=== PATIENT | female | born 2000 | race African-American/Black ===

== ENCOUNTER 2019-04-24 07:35 | Emergency (ER) | payer SELFPAY ==
[~2019-04-24] VITALS: Ht 172.7 cm; Wt 78.0 kg
[2019-04-24] MEDS ORDERED: LIDOCAINE 0.5%-EPI 1:200,000 50 ML VIAL ONE (07:46)
[2019-04-24] MEDS ORDERED: TDAP [DIPH/PERTUSSIS/TET] 0.5 ML VIAL IM ONE ×2 (07:47→08:00)
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
--- NOTE | 2019-04-24 07:55 | NUR ---
DR MUKHERJEE AT BEDSIDE FOR LAC REPAIR
[2019-04-24] MEDS ORDERED: LIDOCAINE 1%-EPI 1:100,000 20 ML VIAL TP ONE (08:00)
--- NOTE | 2019-04-24 08:51 | NUR ---
[employer] AT BEDSIDE SPEAKING W/ PATIENT. UNIT [id number] OFFICER RODNEY PETE#[id number].
[2019-04-24 09:29] VITALS: BP 115/69
--- NOTE | 2019-04-24 09:29 | NUR ---
Patient is ambulatory. Patient discharged to home in stable condition. Written and verbal after care instructions given. Patient verbalizes understanding of instruction.
== END 2019-04-24 09:32 | disposition home or self-care (01) ==
LOC: ER 07:41
DX: S01.81XA Laceration without foreign body of other part of head, initial encounter (principal); Z60.2 Problems related to living alone; V49.59XA Passenger injured in collision with other motor vehicles in traffic accident, initial encounter; Y93.89 Activity, other specified; Y92.413 State road as the place of occurrence of the external cause; Y99.8 Other external cause status
CPT/HCPCS: 12052; 70450; 90471; 90715; 99284; A6403 ×2; J3490

== ENCOUNTER 2021-06-20 01:48 | Emergency (ER) | payer OTHER ==
[~2021-06-20] VITALS: Ht 170.2 cm; Wt 63.5 kg
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
[2021-06-20] MEDS ORDERED: ONDANSETRON 4 MG TAB.RAPDIS ONE (03:09)
[2021-06-20] MEDS ORDERED: HYDROCODONE/APAP 10/325MG TABLET ONE (03:09)
--- NOTE | 2021-06-20 03:25 | NUR ---
[facility] #[phone], WAITING FOR AVAILABLE UNIT
[2021-06-20] MEDS ORDERED: ONDANSETRON 4 MG TAB.RAPDIS PO ONE (03:30)
[2021-06-20] MEDS ORDERED: HYDROCODONE/APAP 10/325MG TABLET PO ONE (03:30)
[2021-06-20] MEDS ORDERED: KETOROLAC TROMETHAMINE INJ 30 MG/ML VIAL ONE (03:45)
[2021-06-20] MEDS ORDERED: KETOROLAC TROMETHAMINE INJ 60 MG/2 ML VIAL IM ONE (04:00)
[2021-06-20] MEDS ORDERED: MORPHINE SULFATE INJ 2 MG/ML DISP.SYRIN IM ONE (04:00)
[2021-06-20] MEDS ORDERED: MORPHINE SULFATE INJ 2 MG/ML DISP.SYRIN ONE (04:00)
[2021-06-20] MEDS ORDERED: LIDO30CR TP (05:07)
--- NOTE | 2021-06-20 05:12 | NUR ---
Patient discharged to home in stable condition. Written and verbal after care instructions given. Patient verbalizes understanding of instruction.
[2021-06-20 05:13] VITALS: BP 130/77
== END 2021-06-20 05:53 | disposition home or self-care (01) ==
LOC: ER 01:53
DX: T14.8XXA Other injury of unspecified body region, initial encounter (principal); F12.11 Cannabis abuse, in remission; Y08.89XA Assault by other specified means, initial encounter; Y93.89 Activity, other specified; Y92.89 Other specified places as the place of occurrence of the external cause; Y99.8 Other external cause status
CPT/HCPCS: 71100; 84703; 96372; 99284; J1885; J2270; Q0162

== ENCOUNTER 2021-10-12 19:10 | Inpatient (IN) | payer OTHER ==
[~2021-10-12] VITALS: Ht 170.2 cm; Wt 76.4 kg
[~2021-10-12 19:10] MED LIST: LIDO30CR TP
--- NOTE | 2021-10-12 19:38 | NUR ---
TO ER BED 3. BIBS C/O ABD PAIN X 4 DAYS. NOT RELIEVED BY OTC MEDS. WORSE WHEN CHANGING POSITIONS. PT STATES "STABBING PAIN" 9/10 ON P/S. PT HAS HX OF ILEUS AND "SX FEEL SIMILAR". PT DENIES ANY CHEST PAIN OR SOB. CHANGED INTO GOWN. AWAITING MD HELLER
--- NOTE | 2021-10-12 19:44 | NUR ---
20g IV LINE ESTABLISHED AT [facility]. BLOOD DRAWN AND SENT TO LAB. URINE COLLECTED AND SENT TO LAB.
[2021-10-12] MEDS ORDERED: ONDANSETRON HCL/PF 4 MG/2 ML VIAL ONE ×2 (19:55→21:57)
[2021-10-12] MEDS ORDERED: MORPHINE SULFATE INJ 4 MG/ML DISP.SYRIN ONE (19:55)
[2021-10-12] MEDS ORDERED: IV NS 0.9% 1,000 ML BAG IV ONE (20:00)
[2021-10-12] MEDS ORDERED: ONDANSETRON HCL/PF 4 MG/2 ML VIAL IVP ONE (20:00)
[2021-10-12] MEDS ORDERED: MORPHINE SULFATE INJ 2 MG/ML DISP.SYRIN IV ONE (20:00)
[2021-10-12 20:06] LABS: BASOPHILS # (AUTO) 0.1 K/uL (0.0-0.2); BASOPHILS % (AUTO) 0.6 % (0.0-2.0); EOSINOPHILS % (AUTO) 0.5 % (0.0-6.0); HEMATOCRIT 40 % (33-45); HEMOGLOBIN 13.3 g/dL (11.5-14.8); LYMPHOCYTES # (AUTO) 1.6 K/uL (0.8-4.8); LYMPHOCYTES % (AUTO) 17.8 % (20.0-44.0); MEAN CORPUSCULAR HGB CONC 33 g/dl (31.0-36.0); MEAN CORPUSCULAR VOLUME 81 fL (82-100); MONOCYTES # (AUTO) 1.2 K/uL (0.1-1.30); NEUTROPHILS # (AUTO) 6.1 K/uL (1.8-8.9); NEUTROPHILS % (AUTO) 68.1 % (43.0-81.0); PLATELET COUNT (AUTO) 204 K/uL (150-450); RED BLOOD CELL COUNT(AUTO) 5.02 MIL/uL (4.0-5.2)
[2021-10-12 20:07] LABS: BILIRUBIN,URINE NEGATIVE (NEGATIVE); COLOR,URINE YELLOW (YELLOW); LEUKOCYTE ESTERASE ,URINE NEGATIVE (NEGATIVE); NITRITE, URINE NEGATIVE (NEGATIVE); PROTEIN,URINE NEGATIVE (NEGATIVE); UGLUCOSE NEGATIVE (NEGATIVE)
[2021-10-12 20:13] LABS: BACTERIA,URINE None seen /HPF (None Seen); MUCUS,URINE Few /LPF (None Seen); RBC,URINE 21-50 /HPF (0-2); SQUAMOUS EPITHELIAL CELL,UR 0-2 /HPF (None Seen); WBC,URINE 0-2 /HPF (0-3)
--- NOTE | 2021-10-12 20:15 | NUR ---
PT BEING TRANSPORTED TO CT SCAN VIA [facility]
[2021-10-12 20:18] LABS: ALBUMIN 3.9 g/dL (3.4-5.0); BILIRUBIN,DIRECT 0.1 mg/dL (0.0-0.2); BILIRUBIN,TOTAL 0.6 mg/dL (0.2-1.0); CALCIUM, SERUM 9.4 mg/dL (8.5-10.1); CREATININE 0.8 mg/dL (0.6-1.3); POTASSIUM 3.2 mmol/L (3.5-5.1); TOTAL PROTEIN, SERUM 8.6 g/dL (6.4-8.2)
--- NOTE | 2021-10-12 20:26 | NUR ---
PT RETURNED FROM CT SCAN [facility]IA [id number]
--- NOTE | 2021-10-12 21:24 | NUR ---
COVID TEST SWABBED AND SENT TO LAB
[2021-10-12] MEDS ORDERED: CEFTRIAXONE 1 G VIAL ONE (21:26)
[2021-10-12] MEDS ORDERED: METRONIDAZOLE 500MG/ NS 100ML 100 ML IV ONE ×2 (21:30→21:31)
[2021-10-12] MEDS ORDERED: CEFTRIAXONE 2 G in IV D5W 100 ML IV SCH (21:30)
[2021-10-12] MEDS ORDERED: POTASSIUM CHLORIDE 20 MEQ TAB.PRT.SR PO ONE ×2 (21:30→21:31)
--- NOTE | 2021-10-12 21:38 | NUR ---
CALLED [facility] PAGED DR ENRIQUE
[2021-10-12] MEDS ORDERED: HYDROMORPHONE 1 MG/1 ML DISP.SYRIN ONE (21:57)
[2021-10-12] MEDS ORDERED: ONDANSETRON HCL/PF 4 MG/2 ML VIAL IV ONE (22:00)
[2021-10-12] MEDS ORDERED: HYDROMORPHONE 1 MG/1 ML DISP.SYRIN IV ONE (22:00)
--- NOTE | 2021-10-12 22:24 | NUR ---
CALLED [facility] PAGED DR ENRIQUE
--- NOTE | 2021-10-12 23:44 | NUR ---
REPORT GIVEN TO BETTE
[2021-10-12 23:53] VITALS: BP 114/71
--- NOTE | 2021-10-12 23:53 | NUR ---
PT TRANSPORTED TO ROOM 307 VIA [facility]
--- NOTE | 2021-10-13 | NUR ---
RN NOTES RECEIVED PATIENT FROM ER WITH DX. OF ACUTE APPENDICITIS, A/OX4, AMBULATORY, ADMISSION INSTRUCTION RENDERED, CALL LIGHT WITHIN REACH, BED IN LOCKED POSITION, SIDERAILSUPX2, WILL CONTINUE TO MONITOR
[2021-10-13] MEDS ORDERED: IV NS 0.9% 1,000 ML IV PRN (00:30)
[2021-10-13] MEDS ORDERED: PIPERACILLIN /TAZOBACTAM 3.375 G VIAL IV ONE (00:48)
[2021-10-13] MEDS ORDERED: ZOSYN IVPB 3.375 G in IV D5W 50ml IV ONE (01:00)
[2021-10-13] MEDS: MORPHINE SULFATE INJ 2 MG/ML DISP.SYRIN IV PRN ×5 (01:24→23:57)
--- NOTE | 2021-10-13 01:29 | NUR ---
RN NOTES complained of abdominal pain- Morphine 2mg IV given as ordered, V/S stable
[2021-10-13] MEDS: ONDANSETRON HCL/PF 4 MG/2 ML VIAL IVP PRN ×4 (01:31→18:18)
--- NOTE | 2021-10-13 01:34 | NUR ---
RN NOTES COMPLAINED OF FEELING NAUSEOUS- ZOFRAN 4 MG IV GIVEN ORDERED
--- NOTE | 2021-10-13 06:19 | NUR ---
RN NOTES SLEEPING BUT AROUSABLE, NO PAIN NOTED, NO SOB, CALL LIGHT WITHIN REACH, SIDERAILSUPX2, PT. NEEDS ATTENDED
--- NOTE | 2021-10-13 06:39 | NUR ---
RN NOTES COMPLAINED OF ABDOMINAL PAIN AND FEELING NAUSEOUS- MORPHINE 2 MG IV FOR PAIN AND ZOFRAN 4MG IV FOR NAUSEA
--- NOTE | 2021-10-13 07:10 | NUR ---
MS RN OPENING NOTES RECEIVED PATIENT IN BED, AWAKE, A&O X 4, ABLE TO MAKE NEEDS KNOWN, ON ROOM AIR TOLERATING WELL. NO S/SX OF DISTRESS NOTED. NO COMPLAINTS OF PAIN AT THIS TIME. IV ACCESS ON LAC G#20, PATENT AND FLUSHES WELL. ONGOING IVF OF NS @75 CC/HR, INFUSING WELL, NO S/SX OF INFILTRATION NOTED. SAFETY PRECAUTIONS IN PLACE: BED ON LOWEST LOCKED POSITION, SIDE RAILS UP X 2, CALL LIGHT WITHIN EASY REACH. NPO REINFORCED. WILL CONTINUE TO MONITOR ACCORDINGLY.
[2021-10-13 08:00] VITALS: BP 109/62
[2021-10-13] MEDS: PIPERACILLIN /TAZOBACTAM 3.375 G in IV D5W 100 ML IV SCH ×2 (08:12→16:44)
[2021-10-13] MEDS: PANTOPRAZOLE 40 MG VIAL IV SCH (08:12)
[2021-10-13 13:19] LABS: BASOPHILS % (AUTO) 0.4 % (0.0-2.0); HEMATOCRIT 36 % (33-45); HEMOGLOBIN 11.7 g/dL (11.5-14.8); LYMPHOCYTES # (AUTO) 0.9 K/uL (0.8-4.8); LYMPHOCYTES % (AUTO) 15.8 % (20.0-44.0); MEAN CORPUSCULAR HGB CONC 33 g/dl (31.0-36.0); MEAN CORPUSCULAR VOLUME 80 fL (82-100); MONOCYTES # (AUTO) 0.8 K/uL (0.1-1.30); MONOCYTES % (AUTO) 14.9 % (2.0-12.0); NEUTROPHILS # (AUTO) 3.8 K/uL (1.8-8.9); NEUTROPHILS % (AUTO) 67.9 % (43.0-81.0); PLATELET COUNT (AUTO) 146 K/uL (150-450); RED BLOOD CELL COUNT(AUTO) 4.46 MIL/uL (4.0-5.2); WHITE BLOOD COUNT (AUTO) 5.5 K/uL (4.3-11.0)
[2021-10-13 16:00] VITALS: BP 105/52
--- NOTE | 2021-10-13 18:34 | NUR ---
MS RN CLOSING NOTES PATIENT IN BED, AWAKE, A&O X 4, ABLE TO MAKE NEEDS KNOWN, ON ROOM AIR TOLERATING WELL. NO S/SX OF DISTRESS NOTED. NO COMPLAINTS OF PAIN AT THIS TIME. IV ACCESS ON LAC G#20, PATENT AND FLUSHES WELL. ONGOING IVF OF NS @75 CC/HR, INFUSING WELL, NO S/SX OF INFILTRATION NOTED. SAFETY PRECAUTIONS IN PLACE: BED ON LOWEST LOCKED POSITION, SIDE RAILS UP X 2, CALL LIGHT WITHIN EASY REACH. ON FULL LIQUIDS, PAIN MANAGED BY PAIN MEDICATION ORDERED. ALL NEEDS ATTENDED AND MET. DUE MEDS GIVEN ORDERED. WILL ENDORSE TO ONCOMING SHIFT FOR PASTORA.
--- NOTE | 2021-10-13 19:31 | NUR ---
MS RN OPENING NOTES PATIENT RECEIVED RESTING IN BED COMFORTABLY; A/OX4, BREATHING EVEN AND UNLABORED; NO SOB NOTED; TOLERATING ROOM AIR WELL; NO DISTRESS NOTED AT THIS TIME; PATIENT ABLE TO MAKE NEEDS KNOWN; PATIENT AMBULATORY WITH STEADY GAIT; L AC #20 INTACT AND PATENT, FLUSHING WELL; SAFETY PRECAUTIONS IMPLEMENTED; BED LOCKED IN LOW POSITION; SIDE RAILS X2 UP; CALL LIGHT WITHIN REACH; WILL CONT TO MONITOR AND CONT PLAN OF CARE
[2021-10-13 20:00] VITALS: BP 104/57
[2021-10-13 21:08] VITALS: BP 104/57
[2021-10-14] MEDS: MORPHINE SULFATE INJ 2 MG/ML DISP.SYRIN IV PRN ×3 (05:04→20:12)
--- NOTE | 2021-10-14 05:22 | NUR ---
MS RN NOTES PATIENT COMPLAINT OF 9/10 RLQ PAIN, ATTEMPTED TO TOLERATE WITHOUT CALLING FOR PAIN MED BUT UNABLE TO TOLERATE. CALLED FOR PAIN MED 10/13 [id number] AND 0504; VSS, PATIENT ABLE TO MAKE NEEDS KNOWN; WILL CONT TO MONITOR
[2021-10-14 06:14] LABS: BASOPHILS % (AUTO) 0.6 % (0.0-2.0); EOSINOPHILS % (AUTO) 1.5 % (0.0-6.0); HEMATOCRIT 36 % (33-45); HEMOGLOBIN 11.7 g/dL (11.5-14.8); LYMPHOCYTES # (AUTO) 1.4 K/uL (0.8-4.8); MEAN CORPUSCULAR HGB CONC 33 g/dl (31.0-36.0); MEAN CORPUSCULAR VOLUME 80 fL (82-100); MONOCYTES # (AUTO) 0.7 K/uL (0.1-1.30); MONOCYTES % (AUTO) 14.7 % (2.0-12.0); NEUTROPHILS # (AUTO) 2.9 K/uL (1.8-8.9); NEUTROPHILS % (AUTO) 56.2 % (43.0-81.0); PLATELET COUNT (AUTO) 158 K/uL (150-450); RED BLOOD CELL COUNT(AUTO) 4.45 MIL/uL (4.0-5.2); WHITE BLOOD COUNT (AUTO) 5.1 K/uL (4.3-11.0)
--- NOTE | 2021-10-14 06:29 | NUR ---
MS RN CLOSING NOTES PATIENT RESTING IN BED COMFORTABLY; A/OX4, BREATHING EVEN AND UNLABORED; NO SOB NOTED; TOLERATING ROOM AIR WELL; NO DISTRESS NOTED AT THIS TIME; PATIENT ABLE TO MAKE NEEDS KNOWN;ALL NEEDS RENDERED; L AC #20 INTACT AND PATENT, FLUSHING WELL; SAFETY PRECAUTIONS IMPLEMENTED; BED LOCKED IN LOW POSITION; SIDE RAILS X2 UP; CALL LIGHT WITHIN REACH; ENDORSE PASTORA TO ONCOMING SHIFT
--- NOTE | 2021-10-14 06:54 | NUR ---
MS RN NOTES MD AT BEDSIDE TO DISCUSS PLAN OF CARE WITH PATIENT
[2021-10-14 07:03] LABS: CREATININE 0.9 mg/dL (0.6-1.3); PHOSPHORUS 4.2 mg/dL (2.5-4.9); POTASSIUM 3.9 mmol/L (3.5-5.1)
[2021-10-14 08:00] VITALS: BP 102/59
--- NOTE | 2021-10-14 08:05 | NUR ---
MS/RN OPENING NOTES RECEIVED PATIENT RESTING IN BED COMFORTABLY; A/OX4, ABLE TO MAKE NEEDS KNOWN. BREATHING EVEN AND UNLABORED; NO SOB NOTED; TOLERATING ROOM AIR WELL; NO DISTRESS NOTED AT THIS TIME; IV ACCESS ON LEFT AC #20G INTACT AND PATENT, FLUSHING WELL; SAFETY PRECAUTIONS IMPLEMENTED; BED LOCKED IN LOW POSITION; SIDE RAILS X2 UP; CALL LIGHT WITHIN REACH; WILL CONTINUE WITH THE PLAN OF CARE.
[2021-10-14] MEDS: PIPERACILLIN /TAZOBACTAM 3.375 G in IV D5W 100 ML IV SCH ×4 (09:07→17:17)
[2021-10-14] MEDS: PANTOPRAZOLE 40 MG VIAL IV SCH (09:07)
--- NOTE | 2021-10-14 15:44 | NUR ---
PATIENT REFUSED IV FLUIDS NORMAL SALINE @75ML/HR. PATIENT IS DRINKING AND EATING WELL. WILL MONITOR.
[2021-10-14 16:00] VITALS: BP 97/61
--- NOTE | 2021-10-14 18:38 | NUR ---
MS/RN CLOSING NOTES PATIENT IN BED COMFORTABLY; A/OX4, ABLE TO MAKE NEEDS KNOWN. BREATHING EVEN AND UNLABORED; NO SOB NOTED; TOLERATING ROOM AIR WELL; NO DISTRESS NOTED AT THIS TIME; PATIENT ABLE TO MAKE NEEDS KNOWN; ALL NEEDS MET; IV ACCESS ON LEFT AC #20G INTACT AND PATENT, FLUSHING WELL; SAFETY PRECAUTIONS IMPLEMENTED; BED LOCKED IN LOW POSITION; SIDE RAILS X2 UP; CALL LIGHT WITHIN REACH; WILL ENDORSE TO THE NEXT SHIFT.
[2021-10-14 20:00] VITALS: BP 100/63
--- NOTE | 2021-10-14 20:02 | NUR ---
MS/RN OPENING NOTES RECEIVED PATIENT RESTING IN BED COMFORTABLY; A/OX4, ABLE TO MAKE NEEDS KNOWN. BREATHING EVEN AND UNLABORED; NO SOB NOTED; TOLERATING ROOM AIR WELL; NO DISTRESS NOTED AT THIS TIME; IV ACCESS ON LEFT AC #20G INTACT AND PATENT, FLUSHING WELL; SAFETY PRECAUTIONS IMPLEMENTED; BED LOCKED IN LOW POSITION; SIDE RAILS X2 UP; CALL LIGHT WITHIN REACH; WILL CONTINUE TO MONITOR.
--- NOTE | 2021-10-14 20:20 | NUR ---
RN NOTES PT COMPLAINED OF PAIN RLQ 9/10.PT WANT MORPHINE.PT GIVEN PRN MORPHINE 2MG.PT TOLERATED WELL.
--- NOTE | 2021-10-14 20:30 | NUR ---
MSRN SEEN BY DR MONIQUE. ORDERS RECEIVED. TO KEEP PATIENT NPO POST MIDNIGHT FOR CT OF ABDOMEN AND PELVIS WITHOUT CONTRAST IN AM..
--- NOTE | 2021-10-14 23:00 | NUR ---
MSRN VERBALIZES VAGINAL ITCHING, WANTED CREAM STATED SHE HAS YEAST INFECTION. WILL NOTIFY MD HOUSING COUNSELOR.
[2021-10-14] MEDS ORDERED: MICONAZOLE NITRATE VAG CREAM 45 GM TUBE VG ONE (23:27)
[2021-10-14] MEDS ORDERED: MICONAZOLE NITRATE VAG CREAM 45 GM TUBE VG SCH (23:30)
--- NOTE | 2021-10-14 23:30 | NUR ---
MSRN ORDERS FOR MONISTAT CREAM RECEIVED.
--- NOTE | 2021-10-14 23:46 | NUR ---
MSRN REFUSED CREAM AT THIS TIME, STATED WILL APPLY MED BY HERSELF LATER, WILL NOTIFY STAFF.
[2021-10-15] MEDS: PIPERACILLIN /TAZOBACTAM 3.375 G in IV D5W 100 ML IV SCH ×2 (00:30→08:14)
[2021-10-15] MEDS: MORPHINE SULFATE INJ 2 MG/ML DISP.SYRIN IV PRN ×2 (04:40→10:44)
--- NOTE | 2021-10-15 04:41 | NUR ---
MSRN VERBALIZES MID ABD PAIN BELOW NAVEL, MORPHINE 2MG IVP ADMINSITERED. REMINDED NPO FOR REPEAT CT ABD AD PELVIS TODAY. WELL UNDERSTOOD.
[2021-10-15 06:08] LABS: CALCIUM, SERUM 9.2 mg/dL (8.5-10.1); CREATININE 0.8 mg/dL (0.6-1.3)
[2021-10-15 06:46] LABS: BASOPHILS % (AUTO) 0.7 % (0.0-2.0); EOSINOPHILS % (AUTO) 2.5 % (0.0-6.0); HEMATOCRIT 38 % (33-45); HEMOGLOBIN 12.1 g/dL (11.5-14.8); LYMPHOCYTES # (AUTO) 1.3 K/uL (0.8-4.8); MEAN CORPUSCULAR HGB CONC 32 g/dl (31.0-36.0); MEAN CORPUSCULAR VOLUME 82 fL (82-100); MONOCYTES # (AUTO) 0.8 K/uL (0.1-1.30); MONOCYTES % (AUTO) 16.5 % (2.0-12.0); NEUTROPHILS # (AUTO) 2.6 K/uL (1.8-8.9); NEUTROPHILS % (AUTO) 53.3 % (43.0-81.0); PLATELET COUNT (AUTO) 171 K/uL (150-450); RED BLOOD CELL COUNT(AUTO) 4.62 MIL/uL (4.0-5.2); WHITE BLOOD COUNT (AUTO) 4.8 K/uL (4.3-11.0)
--- NOTE | 2021-10-15 06:49 | NUR ---
MS/RN CLOSING NOTES PATIENT IN BED AOX4 ON ROOM AIR WELL TOLERATED WELL O2SAT 99%. BREATHING EVEN AND UNLABORED.NO SOB/ DISTRESS NOTED AT THIS TIME; PATIENT ABLE TO MAKE NEEDS KNOWN. IV ACCESS ON LEFT AC #20G INTACT AND PATENT, FLUSHING WELL; SAFETY PRECAUTIONS IMPLEMENTED; BED LOCKED IN LOW POSITION; SIDE RAILS X2 UP; CALL LIGHT WITHIN REACH; WILL ENDORSE TO THE NEXT SHIFT.
--- NOTE | 2021-10-15 07:30 | NUR ---
MS/RN OPENING NOTES RECEIVED PATIENT RESTING IN BED COMFORTABLY; A/OX4, ABLE TO MAKE NEEDS KNOWN. IV ACCESS ON LEFT AC #20G INTACT AND PATENT. SAFETY PRECAUTIONS IN PLACE: BED LOCKED IN LOW POSITION, SIDE RAILS X2 UP, CALL LIGHT WITHIN REACH. WILL CONTINUE PLAN OF CARE
[2021-10-15 08:00] VITALS: BP 100/62
[2021-10-15] MEDS: PANTOPRAZOLE 40 MG VIAL IV SCH (08:15)
--- NOTE | 2021-10-15 09:00 | NUR ---
RN NOTES CT OF ABDOMEN AND PELVIS
[2021-10-15] MEDS ORDERED: METR500T PO (09:44)
[2021-10-15] MEDS ORDERED: CIPR-262 PO (09:44)
[2021-10-15] MEDS: ONDANSETRON HCL/PF 4 MG/2 ML VIAL IVP PRN (10:43)
--- NOTE | 2021-10-15 15:10 | NUR ---
EQUIPMENT COORDINATOR NOTES PATIENT MEDICALLY STABLE FOR DISCHARGE. VSS. DISCHARGE INSTRUCTIONS PROVIDED FOR PATIENT WITH COPIES OF MEDICAL RECORDS. PATIENT WAS ABLE TO VERBALIZE UNDERSTANDING. ALL BELONGINGS ACCOUNTED FOR AND DOCUMENTS SIGNED. IV ACCESS AND ID BAND REMOVED. PATIENT LEFT FACILITY VIA PRIVATE CARE ACCOMPANIED BY FRIEND.
== END 2021-10-15 15:47 | disposition home or self-care (01) | DRG 254 ==
LOC: ER 19:17 → MED 23:41
PROVIDERS: ADMIT Family Medicine; ATTEND Family Medicine
DX: K35.80 Unspecified acute appendicitis (principal); E87.1 Hypo-osmolality and hyponatremia; K38.1 Appendicular concretions; Z20.822 Contact with and (suspected) exposure to COVID-19; E86.1 Hypovolemia; E87.6 Hypokalemia; Z82.49 Family history of ischemic heart disease and other diseases of the circulatory system; R91.1 Solitary pulmonary nodule; R93.2 Abnormal findings on diagnostic imaging of liver and biliary tract
CPT/HCPCS: 36415; 76856-TC; 80048-TC; 80076-TC; 81001; 83690-TC; 83735-TC; 84100-TC; 84703-TC; 85025-TC; 85730-TC; 86850-TC; 87040-TC; 87081-TC; C9113; C9803; G0378; J0696; J1170; J2270; J2405; J2543; J7030; J7050; J7060

== ENCOUNTER 2022-02-15 12:41 | Emergency (ER) | payer OTHER ==
[~2022-02-15] VITALS: Ht 172.7 cm; Wt 75.7 kg
[~2022-02-15 12:41] MED LIST changes: +CIPR-262 PO; +METR500T PO
--- NOTE | 2022-02-15 12:50 | NUR ---
RECEIVED PT 21 YRS FEMALE WALKING IN FROM HOME C/O ABDOMINAL PAIN FOR 4 DAYS NO N/V
--- NOTE | 2022-02-15 12:55 | NUR ---
TERRENCE LAROSE YELLOW COLOR UA SENT TO LAB
--- NOTE | 2022-02-15 13:00 | NUR ---
SEEN BY DR. LAUREN
[2022-02-15] MEDS ORDERED: MORPHINE SULFATE INJ 4 MG/ML DISP.SYRIN ONE (13:08)
[2022-02-15] MEDS ORDERED: KETOROLAC TROMETHAMINE 15 MG/ML VIAL ONE (13:08)
--- NOTE | 2022-02-15 13:15 | NUR ---
INSERTED ANGO CATHETER FR G20 ON LT LENNOX LORENZO AND SENT TO LAB
[2022-02-15 13:25] LABS: BASOPHILS % (AUTO) 0.7 % (0.0-2.0); EOSINOPHILS % (AUTO) 2.4 % (0.0-6.0); HEMATOCRIT 35 % (33-45); HEMOGLOBIN 11.3 g/dL (11.5-14.8); LYMPHOCYTES # (AUTO) 1.8 K/uL (0.8-4.8); LYMPHOCYTES % (AUTO) 28.4 % (20.0-44.0); MEAN CORPUSCULAR HGB CONC 33 g/dl (31.0-36.0); MEAN CORPUSCULAR VOLUME 80 fL (82-100); MONOCYTES # (AUTO) 0.8 K/uL (0.1-1.30); MONOCYTES % (AUTO) 13.2 % (2.0-12.0); NEUTROPHILS # (AUTO) 3.5 K/uL (1.8-8.9); NEUTROPHILS % (AUTO) 55.3 % (43.0-81.0); PLATELET COUNT (AUTO) 246 K/uL (150-450); RED BLOOD CELL COUNT(AUTO) 4.38 MIL/uL (4.0-5.2); WHITE BLOOD COUNT (AUTO) 6.4 K/uL (4.3-11.0)
[2022-02-15] MEDS ORDERED: IOHEXOL-300 100 ML VIAL IV ONE (13:25)
[2022-02-15] MEDS ORDERED: CT SWABBABLE VALVE TRANS SET 1 EA INFUS.SET MC ONE (13:26)
[2022-02-15] MEDS ORDERED: IV NS 0.9% 1,000 ML BAG IV ONE (13:30)
[2022-02-15] MEDS ORDERED: MORPHINE SULFATE INJ 2 MG/ML DISP.SYRIN IV ONE (13:30)
[2022-02-15] MEDS ORDERED: KETOROLAC TROMETHAMINE INJ 30 MG/ML VIAL IV ONE (13:30)
--- NOTE | 2022-02-15 13:39 | NUR ---
TO CT SCAN OF ABDOMIN
[2022-02-15 13:41] LABS: ALBUMIN 3.7 g/dL (3.4-5.0); BILIRUBIN,DIRECT 0.1 mg/dL (0.0-0.2); BILIRUBIN,TOTAL 0.4 mg/dL (0.2-1.0); CREATININE 0.8 mg/dL (0.6-1.3); TOTAL PROTEIN, SERUM 8.1 g/dL (6.4-8.2)
[2022-02-15 13:58] LABS: BILIRUBIN,URINE NEGATIVE (NEGATIVE); COLOR,URINE YELLOW (YELLOW); LEUKOCYTE ESTERASE ,URINE NEGATIVE (NEGATIVE); NITRITE, URINE NEGATIVE (NEGATIVE); PROTEIN,URINE NEGATIVE (NEGATIVE); UGLUCOSE NEGATIVE (NEGATIVE); UROBILINOGEN,URINE 0.2 EU/dL (0.2)
--- NOTE | 2022-02-15 14:00 | NUR ---
Bck from CT SACN OF ABDOMIN DONE
--- NOTE | 2022-02-15 15:17 | NUR ---
DR. LAUREN AT BED SIDE SOOPKING WITH PT ABOUT CT RESULT AND PLAN OF CARE
[2022-02-15] MEDS ORDERED: TRAM-351 PO (15:47)
[2022-02-15] MEDS ORDERED: IBUP-1957 PO (15:47)
--- NOTE | 2022-02-15 16:00 | NUR ---
D/C HL done and pressure appled D/C instraction given to pt fully and verblized understood
[2022-02-15 16:11] VITALS: BP 122/76
== END 2022-02-15 16:12 | disposition admitted as inpatient to this hospital (09) ==
LOC: ER 12:48
DX: N83.9 Noninflammatory disorder of ovary, fallopian tube and broad ligament, unspecified (principal); R10.32 Left lower quadrant pain; K76.89 Other specified diseases of liver; Z98.890 Other specified postprocedural states; Z60.2 Problems related to living alone; Z79.899 Other long term (current) drug therapy
CPT/HCPCS: 99285; 74177; 96374; 96361; 96375; 85025; 80048; 83605; 83690; 80076; 84703; 81003; 36415; J2270; J7030; Q9967; J1885

== ENCOUNTER 2022-06-01 09:10 | Emergency (ER) | payer OTHER ==
[~2022-06-01] VITALS: Ht 170.2 cm; Wt 77.1 kg
[~2022-06-01 09:10] MED LIST changes: +IBUP-1957 PO; +TRAM-351 PO
--- NOTE | 2022-06-01 09:42 | NUR ---
DR JONES AT BEDSIDE FOR EVAL.
[2022-06-01] MEDS ORDERED: MORPHINE SULFATE INJ 2 MG/ML DISP.SYRIN IV ONE (10:00)
[2022-06-01] MEDS ORDERED: IV NS 0.9% 1,000 ML BAG IV ONE (10:00)
[2022-06-01] MEDS ORDERED: MORPHINE SULFATE INJ 2 MG/ML DISP.SYRIN ONE (10:14)
--- NOTE | 2022-06-01 10:15 | NUR ---
U/S TECH AT BEDSIDE FOR PELVIC ULTRASOUND
[2022-06-01 10:17] LABS: BILIRUBIN,URINE NEGATIVE (NEGATIVE); COLOR,URINE YELLOW (YELLOW); LEUKOCYTE ESTERASE ,URINE NEGATIVE (NEGATIVE); NITRITE, URINE NEGATIVE (NEGATIVE); PH,URINE 6.5 (5.0-8.0); PROTEIN,URINE NEGATIVE (NEGATIVE); UGLUCOSE NEGATIVE (NEGATIVE); UROBILINOGEN,URINE 0.2 EU/dL (0.2)
[2022-06-01 10:27] LABS: BASOPHILS % (AUTO) 0.5 % (0.0-2.0); EOSINOPHILS % (AUTO) 0.8 % (0.0-6.0); HEMATOCRIT 34 % (33-45); HEMOGLOBIN 10.7 g/dL (11.5-14.8); LYMPHOCYTES # (AUTO) 1.8 K/uL (0.8-4.8); LYMPHOCYTES % (AUTO) 36.1 % (20.0-44.0); MEAN CORPUSCULAR HGB CONC 32 g/dl (31.0-36.0); MEAN CORPUSCULAR VOLUME 77 fL (82-100); MONOCYTES # (AUTO) 0.8 K/uL (0.1-1.30); MONOCYTES % (AUTO) 15.9 % (2.0-12.0); NEUTROPHILS # (AUTO) 2.3 K/uL (1.8-8.9); NEUTROPHILS % (AUTO) 46.7 % (43.0-81.0); PLATELET COUNT (AUTO) 215 K/uL (150-450); RED BLOOD CELL COUNT(AUTO) 4.45 MIL/uL (4.0-5.2); WHITE BLOOD COUNT (AUTO) 4.9 K/uL (4.3-11.0)
[2022-06-01 10:41] LABS: CALCIUM, SERUM 9.2 mg/dL (8.5-10.1); CREATININE 0.8 mg/dL (0.6-1.3)
[2022-06-01 10:44] LABS: ALBUMIN 3.7 g/dL (3.4-5.0); BILIRUBIN,DIRECT 0.1 mg/dL (0.0-0.2); BILIRUBIN,TOTAL 0.3 mg/dL (0.2-1.0); TOTAL PROTEIN, SERUM 8.3 g/dL (6.4-8.2)
--- NOTE | 2022-06-01 10:45 | NUR ---
PT TO RADIOLOGY VFOR ABDOMINAL CT SCAN VIA GURNEY.
[2022-06-01] MEDS ORDERED: IBUP-1957 PO (12:02)
--- NOTE | 2022-06-01 12:27 | NUR ---
Patient discharged to home in stable condition. Written and verbal after care instructions given. Patient verbalizes understanding of instruction.IV removed. Catheter intact and site benign. Pressure and 4x4 applied to site. No bleeding noted.
[2022-06-01 12:28] VITALS: BP 115/67
== END 2022-06-01 12:28 | disposition home or self-care (01) ==
LOC: ER 09:16
DX: N83.201 Unspecified ovarian cyst, right side (principal); R10.2 Pelvic and perineal pain; Z98.890 Other specified postprocedural states; Z60.2 Problems related to living alone; Z79.899 Other long term (current) drug therapy
CPT/HCPCS: 99284; 74176; 96374; 76856; 96361; 85025; 80048; 80076; 84703; 81003; 36415; 87491; 87591; J7030; J2270